=== PATIENT | female | born 1945 | race Caucasian/White ===

== ENCOUNTER 2018-07-10 09:00 | Outpatient (RCR) | payer SELFPAY ==
--- NOTE | 2018-09-17 14:48 | HP.PT.NRP ---
HP - Discharge Summary (1) - Patient Information RUCHI ASTORGA was seen in my office for initial evaluation on . The following Plan of Care was established for this patient: This patient was last seen in our office 07/10/18. Pertinent comments regarding their Physical therapy will appear below: Pt. was seen at her last visit and was doing very well at that point in time. Pt. again desired to continue with exercises on her own and follow up with PT if neded. Pt. has not been seen in several weeks and will be DC from PT at this point in time. At this point I will be discontinuing this patient from physical therapy. I would be happy to see this patient again in the future if found appropriate by the physician. Thank you! VETO TinajeroT
== END 2018-07-10 19:00 | disposition home or self-care (01) ==
LOC: PT 09:00
PROVIDERS: Family Provider Family Medicine; PCP Family Medicine; Referring Provider Family Medicine; Visit Provider Family Medicine
DX: Z98.890 Other specified postprocedural states (principal)
CPT/HCPCS: 97110